=== PATIENT | female | born 1970 | race Hispanic/Latino ===

== ENCOUNTER 2019-07-15 00:16 | Emergency (ER) | payer BC, OTHER ==
[2019-07-15] MEDS ORDERED: IBUPROFEN 400 MG TABLET ONE (00:53)
[2019-07-15] MEDS ORDERED: ACETAMINOPHEN EXTRA STRENGTH 500 MG TABLET ONE (00:53)
[2019-07-15] MEDS ORDERED: IBUPROFEN 200 MG TAB ONE (00:53)
[2019-07-15] MEDS ORDERED: BENZONATATE 100 MG CAPSULE PO ONE (00:53)
[2019-07-15] MEDS ORDERED: OSELTAMIVIR PHOSPHATE 75 MG CAP ONE (01:42)
[2019-07-15] MEDS ORDERED: AMOXICILLIN 500 MG CAPSULE PO ONE (01:43)
== END 2019-07-15 02:53 | disposition home or self-care (01) ==
LOC: EDH 00:16
DX: J09.X2 Influenza due to identified novel influenza A virus with other respiratory manifestations (principal); Z98.890 Other specified postprocedural states; Z90.49 Acquired absence of other specified parts of digestive tract
CPT/HCPCS: 87804; 87880